=== PATIENT | female | born 1980 | race Caucasian/White ===

== ENCOUNTER 2024-07-05 05:34 | Day surgery (SDC) | payer OTHER ==
[2024-07-04 12:20] VITALS: BP 156/75
[~2024-07-05] VITALS: Ht 157.5 cm; Wt 48.5 kg
[2024-07-05] MEDS ORDERED: CEFAZOLIN SODIUM 1,000 MG VIAL ONE (07:08)
[2024-07-05] MEDS ORDERED: CEFTRIAXONE SODIUM 2,000 MG VIAL ONE (07:39)
[2024-07-05] MEDS ORDERED: CHLORHEXIDINE GLUCONATE 120 ML BOTTLE TOP ONE (08:21)
[2024-07-05] MEDS ORDERED: MORPHINE SULFATE 4 MG/ML VIAL IV ONE (10:35)
== END 2024-07-05 12:05 | disposition home or self-care (01) ==
LOC: CIR.AMB 05:34
PROVIDERS: ATTEND Surgery
DX: D24.2 Benign neoplasm of left breast (principal); N60.82 Other benign mammary dysplasias of left breast; D48.62 Neoplasm of uncertain behavior of left breast; Z88.2 Allergy status to sulfonamides; E03.8 Other specified hypothyroidism